=== PATIENT | female | born 1935 | race Native Hawaiian/Other Pacific Islander ===

== ENCOUNTER 2018-06-26 14:43 | Outpatient (CLI) | payer OTHER, MEDICARE | END 2018-06-26 23:27 | disposition home or self-care (01) | LOC: RAD 14:43 | DX: M54.6 Pain in thoracic spine (principal) ==

== ENCOUNTER 2019-01-29 16:31 | Outpatient (CLI) | payer OTHER | END 2019-01-29 20:23 | disposition home or self-care (01) | LOC: RAD 16:31 | DX: R06.02 Shortness of breath (principal) ==

== ENCOUNTER 2019-02-11 11:55 | Outpatient (CLI) | payer OTHER ==
[2019-02-11 12:58] LABS: PLATELET COUNT 320 K/uL (152-353)
[2019-02-11 13:15] LABS: POTASSIUM 4.1 mmol/L (3.6-5.2)
== END 2019-02-11 20:24 | disposition home or self-care (01) ==
LOC: LABW 11:55
PROVIDERS: Nurse Practitioner
DX: M79.10 Myalgia, unspecified site (principal)
CPT/HCPCS: 36415; 80048; 85027

== ENCOUNTER 2019-04-28 08:45 | Outpatient (CLI) | payer OTHER | END 2019-04-28 22:58 | disposition home or self-care (01) | LOC: US 08:45 | DX: R10.12 Left upper quadrant pain (principal) ==

== ENCOUNTER 2019-06-29 11:43 | Outpatient (CLI) | payer OTHER ==
[2019-06-29 12:17] LABS: PLATELET COUNT 307 K/uL (152-353)
[2019-06-29 12:36] LABS: POTASSIUM 3.5 mmol/L (3.6-5.2)
== END 2019-06-29 20:38 | disposition home or self-care (01) ==
LOC: LABW 11:43
PROVIDERS: Physician Assistant
DX: R06.09 Other forms of dyspnea (principal)
CPT/HCPCS: 36415; 80053; 84443; 85027; 85379

== ENCOUNTER 2021-10-11 15:50 | Outpatient (CLI) | payer OTHER | END 2021-10-11 20:27 | disposition home or self-care (01) | LOC: RAD 15:50 | PROVIDERS: ATTEND Physician Assistant | DX: M25.512 Pain in left shoulder (principal) ==

== ENCOUNTER 2021-12-07 09:40 | Outpatient (CLI) | payer OTHER | END 2021-12-07 18:56 | disposition home or self-care (01) | LOC: LABW 09:40 | PROVIDERS: ATTEND Internal Medicine Pulmonary Disease | DX: R06.09 Other forms of dyspnea (principal); J44.9 Chronic obstructive pulmonary disease, unspecified; F17.211 Nicotine dependence, cigarettes, in remission; I35.8 Other nonrheumatic aortic valve disorders; R09.89 Other specified symptoms and signs involving the circulatory and respiratory systems | CPT/HCPCS: 36415; 82103; 82104 ==